=== PATIENT | female | born 1965 | race Caucasian/White ===

== ENCOUNTER 2017-06-17 14:41 | Observation (INO) | payer BC ==
[2017-06-17] MEDS ORDERED: NS 0.9% 1000 ML* 2,000 ML IV ONE (15:21)
[2017-06-17] MEDS ORDERED: Morphine INJ* 4 MG/ML 1 ML SYRINGE IV ONE ×3 (15:21→19:40)
[2017-06-17] MEDS ORDERED: Ondansetron INJ* 2 MG/ML VIAL IV ONE (15:21)
[2017-06-17 15:40] LABS: Hematocrit 42 % (35-47); Hemoglobin 13.8 g/dl (12.0-16.0); Mean Corpuscular HGB Conc 33 g/dl (31-36); Mean Corpuscular Hemoglobin 29 pg (27-31); Mean Corpuscular Volume 86 fL (80-97); Mean Platelet Volume 9 um3 (7.4-10.4); Red Blood Count 4.83 10^6/ul (4.0-5.4); Red Cell Distribution Width 13 % (10.5-15); White Blood Count 15.1 10^3/ul (3.5-10.8)
[2017-06-17 15:56] LABS: ALT 23 U/L (7-52); AST 12 U/L (13-39); Albumin 3.9 g/dL (3.2-5.2); Alkaline Phosphatase 61 U/L (34-104); Anion Gap 9 mmol/L (2-11); BUN/Creatinine Ratio 14.1 (8-20); Blood Urea Nitrogen 9 mg/dL (6-24); C Reactive Protein 178.57 mg/L (< 5.00); CO2 Carbon Dioxide 25 mmol/L (22-32); Calcium 9.1 mg/dL (8.6-10.3); Chloride 99 mmol/L (101-111); EGFR African American 124.4 (>60); EGFR Non-African American 96.7 (>60); Globulin 3.2 g/dL (2-4); Glucose 125 mg/dL (70-100); Lipase < 10 U/L (11.0-82.0); Magnesium 1.7 mg/dL (1.9-2.7); Potassium 3.4 mmol/L (3.5-5.0); Sodium 133 mmol/L (133-145); Total Protein 7.1 g/dL (6.4-8.9)
[2017-06-17] MEDS ORDERED: Iohexol 300* (CONTRAST) 10 ML SDV IV ONE (16:05)
[2017-06-17 16:51] LABS: TSH (Thyroid Stimulating Horm) 2.21 mcIU/mL (0.34-5.60)
[2017-06-17 17:29] LABS: Urine Bacteria 1+ (Absent); Urine Bilirubin Negative (Negative); Urine Glucose Negative (Negative); Urine Nitrite Negative (Negative)
--- NOTE | 2017-06-17 18:29 | RAD ---
INDICATION: Diffuse abdominal pain worse on RIGHT side and lower. Post hysterectomy. History of hepatitis A and diverticulitis. COMPARISON: November 29, 2015 CT. TECHNIQUE: Multidetector CT images were obtained from the lung bases to the ischial tuberosities with 140 mL Omnipaque 300 IV and oral contrast. Multiplanar reformation. REPORT: Minimal dependent basilar atelectasis. Decreased density of the liver consistent with fatty infiltration. No focal hepatic lesions evident. Mildly distended gallbladder. Small volume of pericholecystic fluid. No conspicuous calcified gallstones. Negative for biliary dilatation. Negative for CT abnormality of the pancreas or spleen. Inflamed dilated retrocecal appendix measuring up to 2.2 cm in diameter proximally. 5 mm appendicolith at the proximal segment of the appendix. The appendix extends medial and posterior over the RIGHT pelvic sidewall. Negative for periappendiceal abscess. Moderate periappendiceal inflammatory change with small volume of free fluid along the RIGHT pelvic sidewall. Severe diverticulosis of the sigmoid colon and less marked diverticulosis of the remainder of the colon without findings of diverticulitis. Negative for free air. Small fat-containing umbilical hernia without inflammatory change. Normal adrenal glands. Unremarkable kidneys with symmetric nephrograms and pyelograms. Unremarkable nondilated ureters. The RIGHT ureter courses through the region of periappendiceal inflammatory change. Unremarkable urinary bladder as well as the cervical stump post hysterectomy and bilateral adnexal regions. Upper normal 1 cm short axis aortocaval lymph node below level of the renal arteries. Negative for lymphadenopathy. Normal diameter abdominal aorta and iliac arteries. Physiologic distention of the IVC. Negative for suspicious osseous lesions. IMPRESSION: Acute appendicitis as described. Appendicolith within the proximal segment of the appendix. Moderate periappendiceal inflammatory change without periappendiceal abscess.
[2017-06-17] MEDS ORDERED: NS 0.9% 1000 ML* 1,000 ML IV ONE (19:21)
--- NOTE | 2017-06-17 19:26 | ED ---
Shavon Espinosa Auryana, scribed for Michael Dobbs MD on 06/17/17 at 1506 . Abdominal Pain/Female - HPI Summary HPI Summary: 52 year old female presents with abdominal pain starting 2 days ago - Thursday evening around 11:30 PM. She reports that the abdominal pain was located diffusely but is now localized to the right side. Initially the pain was constant with intermittent episodes of worsening pain but now the pain is constant - currently a 9/10 and is unable to get comfortable. She also reports nausea, vomiting, and watery diarrhea. She denies any fever, chills, or any problems or burning with urination. She denies any vomiting today. She denies any ABX recently. PMHx is significant for hysterectomy (uterus only). - History of Current Complaint Chief Complaint: EDAbdPain Stated Complaint: ABD PAIN Time Seen by Provider: 06/17/17 15:03 Hx Obtained From: Patient Hx Last Menstrual Period: N/A ?: No Onset/Duration: Sudden Onset, Lasting Days - 2, Still Present Timing: Constant Severity Initially: Moderate Severity Currently: Severe Pain Intensity: 10 Pain Scale Used: 0-10 Numeric Location: Diffuse - INITIALLY, Discrete At: RUQ - LOCALIZED Radiates: No Associated Signs and Symptoms: Positive: Nausea, Vomiting - RESOLVED, Diarrhea. Negative: Fever, Urinary Symptoms Allergies/Adverse Reactions: Allergies Allergy/AdvReac Type Severity Reaction Status Date / Time Thimerosal Allergy Intermediate Eyes Verified 11/29/15 10:14 Itchy/Swollen/Red/Watery PMH/Surg Hx/FS Hx/Imm Hx Endocrine/Hematology History: Denies: Hx Diabetes, Hx Systemic Lupus Erythematosus Cardiovascular History: Denies: Hx Congestive Heart Failure, Hx Hypertension, Hx Pacemaker/ICD Respiratory History: Reports: Hx Sleep Apnea - new CPAP user 05/2014 History: Denies: Hx Dialysis, Hx Kidney Stones, Hx Renal Disease Musculoskeletal History: Reports: Other Musculoskeletal History - joint pain, obesity Denies: Hx Rheumatoid Arthritis Sensory History: Denies: Hx Hearing Aid Psychiatric History: Denies: Hx Panic Disorder - Cancer History Hx Chemotherapy: No Hx Radiation Therapy: No - Surgical History Surgery Procedure, Year, and Place: hysterectomy (uterus only); tubal explorationwisdom teeth, (left) knee arthroscopy 2000; colonoscopy 12/2012 unsuccessful [place] [facility] [place] Infectious Disease History: Reports: Hx Hepatitis - hep A, 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 Negative: burning Musculoskeletal: Negative Skin: Negative Neurological: Negative Psychological: Normal All Other Systems Reviewed And Are Negative: Yes Physical Exam - Summary Physical Exam Summary: General: well-appearing, moderate pain distress Skin: warm, color reflects adequate perfusion, dry Head: normal Eyes: EOMI, NAYANA ENT: Dry mucus membranes but otherwise normal Neck: supple, nontender Respiratory: CTA, breath sounds present Cardiovascular: RRR Abdomen: soft, diffuse abdominal tenderness R>L. Bowel: present. Hypoactive. Musculoskeletal: normal, strength/ROM intact Neurological: normal, sensory/motor intact, A&O x3 Psychological: affect/mood appropriate Triage Information Reviewed: Yes Vital Signs On Initial Exam: Initial Vitals Temp Pulse Resp BP Pulse Ox 97.4 F 80 20 129/70 100 06/17/17 14:47 06/17/17 14:47 06/17/17 14:47 06/17/17 14:47 06/17/17 14:47 Vital Signs Reviewed: Yes Diagnostics - Vital Signs Vital Signs Temp Pulse Resp BP Pulse Ox 06/17/17 14:47 97.4 F 80 20 129/70 100 - Laboratory Lab Results: Lab Results 06/17/17 06/17/17 06/17/17 Range/Units 15:30 15:30 15:30 WBC 15.1 H (3.5-10.8) 10^3/ul RBC 4.83 (4.0-5.4) 10^6/ul Hgb 13.8 (12.0-16.0) g/dl Hct 42 (35-47) % MCV 86 (80-97) fL MCH 29 (27-31) pg MCHC 33 (31-36) g/dl RDW 13 (10.5-15) % Plt Count 230 (150-450) 10^3/ul MPV 9 (7.4-10.4) um3 Neut % (Auto) 81.1 (38-83) % Lymph % (Auto) 10.1 L (25-47) % [place] % (Auto) 7.7 (1-9) % Eos % (Auto) 0.1 (0-6) % Baso % (Auto) 1.0 (0-2) % Absolute Neuts (auto) 12.2 H (1.5-7.7) 10^3/ul Absolute Lymphs (auto) 1.5 (1.0-4.8) 10^3/ul Absolute Monos (auto) 1.2 H (0-0.8) 10^3/ul Absolute Eos (auto) 0 (0-0.6) 10^3/ul Absolute Basos (auto) 0.2 (0-0.2) 10^3/ul Absolute Nucleated RBC 0.01 10^3/ul Nucleated RBC % 0 INR (Anticoag Therapy) 1.10 (0.89-1.11) APTT 29.3 (26.0-36.3) seconds Sodium 133 (133-145) mmol/L Potassium 3.4 L (3.5-5.0) mmol/L Chloride 99 L (101-111) mmol/L Carbon Dioxide 25 (22-32) mmol/L Anion Gap 9 (2-11) mmol/L BUN 9 (6-24) mg/dL Creatinine 0.64 (0.51-0.95) mg/dL Est GFR ( Amer) 124.4 (>60) Est GFR (Non-Af Amer) 96.7 (>60) BUN/Creatinine Ratio 14.1 (8-20) Glucose 125 H (70-100) mg/dL Lactic Acid (0.5-2.0) mmol/L Calcium 9.1 (8.6-10.3) mg/dL Magnesium 1.7 L (1.9-2.7) mg/dL Total Bilirubin 1.30 H (0.2-1.0) mg/dL AST 12 L (13-39) U/L ALT 23 (7-52) U/L Alkaline Phosphatase 61 (34-104) U/L Troponin I 0.00 (<0.04) ng/mL C-Reactive Protein 178.57 H (< 5.00) mg/L Total Protein 7.1 (6.4-8.9) g/dL Albumin 3.9 (3.2-5.2) g/dL Globulin 3.2 (2-4) g/dL Albumin/Globulin Ratio 1.2 (1-3) Lipase < 10 L (11.0-82.0) U/L TSH 2.21 (0.34-5.60) mcIU/mL Urine Color Urine Appearance Urine pH (5-9) Ur Specific [place] (1.010-1.030) Urine Protein (Negative) Urine Ketones (Negative) Urine Blood (Negative) Urine Nitrate (Negative) Urine Bilirubin (Negative) Urine Urobilinogen (Negative) Ur Leukocyte Esterase (Negative) Urine WBC (Auto) (Absent) Urine RBC (Auto) (Absent) Ur Squamous Epith Cells (Absent) Urine Bacteria (Absent) Urine Glucose (Negative) 06/17/17 06/17/17 Range/Units 15:30 17:05 WBC (3.5-10.8) 10^3/ul RBC (4.0-5.4) 10^6/ul Hgb (12.0-16.0) g/dl Hct (35-47) % MCV (80-97) fL MCH (27-31) pg MCHC (31-36) g/dl RDW (10.5-15) % Plt Count (150-450) 10^3/ul MPV (7.4-10.4) um3 Neut % (Auto) (38-83) % Lymph % (Auto) (25-47) % [place] % (Auto) (1-9) % Eos % (Auto) (0-6) % Baso % (Auto) (0-2) % Absolute Neuts (auto) (1.5-7.7) 10^3/ul Absolute Lymphs (auto) (1.0-4.8) 10^3/ul Absolute Monos (auto) (0-0.8) 10^3/ul Absolute Eos (auto) (0-0.6) 10^3/ul Absolute Basos (auto) (0-0.2) 10^3/ul Absolute Nucleated RBC 10^3/ul Nucleated RBC % INR (Anticoag Therapy) (0.89-1.11) APTT (26.0-36.3) seconds Sodium (133-145) mmol/L Potassium (3.5-5.0) mmol/L Chloride (101-111) mmol/L Carbon Dioxide (22-32) mmol/L Anion Gap (2-11) mmol/L BUN (6-24) mg/dL Creatinine (0.51-0.95) mg/dL Est GFR ( Amer) (>60) Est GFR (Non-Af Amer) (>60) BUN/Creatinine Ratio (8-20) Glucose (70-100) mg/dL Lactic Acid 1.6 (0.5-2.0) mmol/L Calcium (8.6-10.3) mg/dL Magnesium (1.9-2.7) mg/dL Total Bilirubin (0.2-1.0) mg/dL AST (13-39) U/L ALT (7-52) U/L Alkaline Phosphatase (34-104) U/L Troponin I (<0.04) ng/mL C-Reactive Protein (< 5.00) mg/L Total Protein (6.4-8.9) g/dL Albumin (3.2-5.2) g/dL Globulin (2-4) g/dL Albumin/Globulin Ratio (1-3) Lipase (11.0-82.0) U/L TSH (0.34-5.60) mcIU/mL Urine Color Yellow Urine Appearance Clear Urine pH 8.0 (5-9) Ur Specific [place] 1.012 (1.010-1.030) Urine Protein Negative (Negative) Urine Ketones 1+ H (Negative) Urine Blood Negative (Negative) Urine Nitrate Negative (Negative) Urine Bilirubin Negative (Negative) Urine Urobilinogen Positive H (Negative) Ur Leukocyte Esterase Trace H (Negative) Urine WBC (Auto) Trace(0-5/hpf) (Absent) Urine RBC (Auto) Absent (Absent) Ur Squamous Epith Cells Present H (Absent) Urine Bacteria 1+ H (Absent) Urine Glucose Negative (Negative) Result Diagrams: 06/17/17 15:30 06/17/17 15:30 Lab Statement: Any lab studies that have been ordered have been reviewed, and results considered in the medical decision making process. - CT ABD/PEL CT Interpretation: Positive (See Comments) - IMPRESSION: Acute appendicitis as described. Appendicolith within the proximal segment of the appendix. Moderate periappendiceal inflammatory change without periappendiceal abscess. CT Interpretation Completed By: Radiologist Re-Evaluation - Re-Evaluation First Eval Re-Evaluation Time: 19:22 - DISCUSSED IMAGING RESULTS AND ADMISSION Abdominal Pain Fem Course/Dx - Course Course Of Treatment: NO CRITICAL CARE TIME. DISCUSSED WITH DR FERNÁNDEZ, SHE WILL SEE PATIENT IN ED. - Diagnoses Provider Diagnoses: Appendicitis - Provider Notifications Discussed Care Of Patient With: Annia Fernández Time Discussed With Above Provider: 19:15 - AGREES TO ADMIT FOR SURGERY Instructed by Provider To: Admit As Inpatient Discharge - Discharge Plan Condition: Stable Disposition: ADMITTED TO [facility] Referrals: Letitia Juan MD [Primary Care Provider] - The documentation as recorded by the Shavon rodrigez Auryana accurately reflects the service I personally performed and the decisions made by me, Michael Dobbs MD.
--- NOTE | 2017-06-17 20:16 | HP ---
H&P (Free Text) History and Physical: Surgery H & P Asked by Dr. Dobbs to evaluate a pt. with abd. pain and a CT suggestive of appendicitis. Ms. Moulton reports she had Nausea, vomiting, and diarrhea starting 2 days ago. This subsided, but she noticed she had bad RLQ pain that persisted. She denies fever, dysuria, or vaginal d/c with this pain. She does feel hungry and thirsty. She has never had anything similar in the past. PMHx: Sleep apnea, depression, glaucoma Meds: citalopram, timolol, xalatan ALL: thimerosal SH: neg. tob., occ EtOH, neg IVDA ROS: neg except for PMHx PE: general: WDWN somewhat overweight female in NAD Vital Signs 06/17/17 06/17/17 06/17/17 14:47 15:11 15:12 Temperature 97.4 F Pulse Rate 80 69 69 Respiratory 20 21 Rate Blood Pressure 129/70 132/74 (mmHg) O2 Sat by Pulse 100 100 100 Oximetry 06/17/17 06/17/17 06/17/17 15:14 15:40 15:48 Temperature 97.4 F Pulse Rate 70 75 Respiratory 18 18 18 Rate Blood Pressure 132/74 116/64 (mmHg) O2 Sat by Pulse 100 100 Oximetry 06/17/17 06/17/17 06/17/17 15:57 16:00 17:03 Temperature 97.1 F Pulse Rate 67 67 Respiratory 18 18 22 Rate Blood Pressure 166/64 123/67 (mmHg) O2 Sat by Pulse 100 99 Oximetry 06/17/17 06/17/17 06/17/17 17:04 17:22 18:30 Temperature Pulse Rate 61 Respiratory 21 20 16 Rate Blood Pressure 138/71 167/66 (mmHg) O2 Sat by Pulse 100 Oximetry 06/17/17 19:47 Temperature Pulse Rate Respiratory 23 Rate Blood Pressure (mmHg) O2 Sat by Pulse Oximetry HEENT: Neg. cervical adenopathy, neg. scleral icterus, moist oral mucosa lungs: clear to ausc. heart: reg. with sys. murmur abd: hyperactive BS, soft, tender with guarding in RLQ>RUQ ext: neg. cyanosis, edema, easily palp DPs. Laboratory Results - last 24 hr 06/17/17 06/17/17 06/17/17 15:30 15:30 15:30 WBC 15.1 H RBC 4.83 Hgb 13.8 Hct 42 MCV 86 MCH 29 MCHC 33 RDW 13 Plt Count 230 MPV 9 Neut % (Auto) 81.1 Lymph % (Auto) 10.1 L [place] % (Auto) 7.7 Eos % (Auto) 0.1 Baso % (Auto) 1.0 Absolute Neuts (auto) 12.2 H Absolute Lymphs (auto) 1.5 Absolute Monos (auto) 1.2 H Absolute Eos (auto) 0 Absolute Basos (auto) 0.2 Absolute Nucleated RBC 0.01 Nucleated RBC % 0 INR (Anticoag Therapy) 1.10 APTT 29.3 Sodium 133 Potassium 3.4 L Chloride 99 L Carbon Dioxide 25 Anion Gap 9 BUN 9 Creatinine 0.64 Est GFR ( Amer) 124.4 Est GFR (Non-Af Amer) 96.7 BUN/Creatinine Ratio 14.1 Glucose 125 H Lactic Acid Calcium 9.1 Magnesium 1.7 L Total Bilirubin 1.30 H AST 12 L ALT 23 Alkaline Phosphatase 61 Troponin I 0.00 C-Reactive Protein 178.57 H Total Protein 7.1 Albumin 3.9 Globulin 3.2 Albumin/Globulin Ratio 1.2 Lipase < 10 L TSH 2.21 Urine Color Urine Appearance Urine pH Ur Specific [place] Urine Protein Urine Ketones Urine Blood Urine Nitrate Urine Bilirubin Urine Urobilinogen Ur Leukocyte Esterase Urine WBC (Auto) Urine RBC (Auto) Ur Squamous Epith Cells Urine Bacteria Urine Glucose 06/17/17 06/17/17 15:30 17:05 WBC RBC Hgb Hct MCV MCH MCHC RDW Plt Count MPV Neut % (Auto) Lymph % (Auto) [place] % (Auto) Eos % (Auto) Baso % (Auto) Absolute Neuts (auto) Absolute Lymphs (auto) Absolute Monos (auto) Absolute Eos (auto) Absolute Basos (auto) Absolute Nucleated RBC Nucleated RBC % INR (Anticoag Therapy) APTT Sodium Potassium Chloride Carbon Dioxide Anion Gap BUN Creatinine Est GFR ( Amer) Est GFR (Non-Af Amer) BUN/Creatinine Ratio Glucose Lactic Acid 1.6 Calcium Magnesium Total Bilirubin AST ALT Alkaline Phosphatase Troponin I C-Reactive Protein Total Protein Albumin Globulin Albumin/Globulin Ratio Lipase TSH Urine Color Yellow Urine Appearance Clear Urine pH 8.0 Ur Specific [place] 1.012 Urine Protein Negative Urine Ketones 1+ H Urine Blood Negative Urine Nitrate Negative Urine Bilirubin Negative Urine Urobilinogen Positive H Ur Leukocyte Esterase Trace H Urine WBC (Auto) Trace(0-5/hpf) Urine RBC (Auto) Absent Ur Squamous Epith Cells Present H Urine Bacteria 1+ H Urine Glucose Negative A/P: Probable appendicitis. Will proceed to OR. I have explained to her the nature of surgery, its risks, benefits, and alternatives. She understands, and agrees to proceed. Ashish
[2017-06-17] MEDS ORDERED: Bupivacaine 0.25% W/EPI* 50 ML VIAL ONE (20:57)
[2017-06-17] MEDS ORDERED: fentaNYL* 50 MCG/ML 2 ML VIAL (100 MCG VIAL) ONE (21:09)
[2017-06-17] MEDS ORDERED: Midazolam* 1 MG/ML 2 ML VIAL (2 MG) ONE (21:09)
[2017-06-17] MEDS ORDERED: ceFOXitin 2 GM IVPREMIX* 2 GM/50 ML BAG ONE (21:09)
[2017-06-17] MEDS ORDERED: KETAMINE HCL* 50 MG/ML 10 ML VIAL ONE (21:17)
[2017-06-17] MEDS ORDERED: Succinylcholine* 20 MG/ML 10 ML VIAL ONE (21:41)
[2017-06-17] MEDS ORDERED: Dexamethasone IV* 4 MG/ML 1 ML (4 MG) ONE (21:41)
[2017-06-17] MEDS ORDERED: Propofol* 10 MG/ML 20 ML BTL IV PUSH ONE (21:41)
[2017-06-17] MEDS ORDERED: Ketorolac INJ* 30 MG/ML 1 ML VIAL ONE (21:41)
[2017-06-17] MEDS ORDERED: Ondansetron INJ* 2 MG/ML VIAL ONE (21:41)
[2017-06-17] MEDS ORDERED: Rocuronium* 10 MG/ML VIAL ONE (21:53)
[2017-06-17] MEDS ORDERED: Neostigmine Methylsulfate* 2 MG/2 ML SYRINGE ONE (21:58)
[2017-06-17] MEDS ORDERED: Glycopyrrolate IV* 0.2 MG/ML 1 ML VIAL ONE (21:58)
[2017-06-17] MEDS ORDERED: Lidocaine 2% PF * 5 ML VIAL ONE (22:00)
[2017-06-17] MEDS ORDERED: Morphine INJ* 2 MG/ML 1 ML SYRINGE IV PRN (22:39)
[2017-06-17] MEDS ORDERED: oxyCODONE/Acetamin 5/325 MG* TAB PO PRN ×2 (22:39)
--- NOTE | 2017-06-17 22:42 | SURGPN ---
Brief Operative Note - Surgery Procedures: Procedures COLONOSCOPY (01/04/13) EXCIS KNEE SEMILUN CARTL (04/01/01) KNEE ARTHROSCOPY (04/01/01) 06/17/17 Op Note Pre-op dx: appendicitis Post-op dx: gangrenous appendicitis Procedure: lap. appy Surgeon: Pradeep Asst: none Anesth: general EBL: 25 cc Complications: none SCDs on during surgery Abx: given pre-op Pt. tolerated procedure well and was transferred to in a stable condition. CLFoster
[2017-06-17] MEDS ORDERED: DiMENhydriNATE IV* 50 MG/ML VIAL IV PUSH PRN (22:43)
[2017-06-17] MEDS ORDERED: fentaNYL* 50 MCG/ML 2 ML VIAL (100 MCG VIAL) IV PRN (22:43)
[2017-06-18] MEDS: ceFOXitin 2 GM IVPREMIX* 2 GM/50 ML BAG IVPB SCH ×4 (03:59→21:37)
[2017-06-18 05:51] LABS: Hematocrit 38 % (35-47); Hemoglobin 12.4 g/dl (12.0-16.0); Mean Corpuscular HGB Conc 33 g/dl (31-36); Mean Corpuscular Hemoglobin 29 pg (27-31); Mean Corpuscular Volume 88 fL (80-97); Mean Platelet Volume 9 um3 (7.4-10.4); Red Blood Count 4.29 10^6/ul (4.0-5.4); Red Cell Distribution Width 13 % (10.5-15); White Blood Count 15.1 10^3/ul (3.5-10.8)
--- NOTE | 2017-06-18 09:08 | PN ---
Progress Note - Progress Note Date of Service: 06/18/17 Note: Ms. Moulton reports she feels better than before surgery. She is tolerating a diet. Vital Signs 06/17/17 06/17/17 06/17/17 14:47 15:11 15:12 Temperature 97.4 F Pulse Rate 80 69 69 Respiratory 20 21 Rate Blood Pressure 129/70 132/74 (mmHg) O2 Sat by Pulse 100 100 100 Oximetry 06/17/17 06/17/17 06/17/17 15:14 15:40 15:48 Temperature 97.4 F Pulse Rate 70 75 Respiratory 18 18 18 Rate Blood Pressure 132/74 116/64 (mmHg) O2 Sat by Pulse 100 100 Oximetry 06/17/17 06/17/17 06/17/17 15:57 16:00 17:03 Temperature 97.1 F Pulse Rate 67 67 Respiratory 18 18 22 Rate Blood Pressure 166/64 123/67 (mmHg) O2 Sat by Pulse 100 99 Oximetry 06/17/17 06/17/17 06/17/17 17:04 17:22 18:30 Temperature Pulse Rate 61 Respiratory 21 20 16 Rate Blood Pressure 138/71 167/66 (mmHg) O2 Sat by Pulse 100 Oximetry 06/17/17 06/17/17 06/17/17 19:47 22:35 22:40 Temperature 98.8 F Pulse Rate 87 79 Respiratory 23 20 28 Rate Blood Pressure 132/44 127/58 (mmHg) O2 Sat by Pulse 90 92 Oximetry 06/17/17 06/17/17 06/17/17 22:45 22:50 23:00 Temperature Pulse Rate 84 80 81 Respiratory 27 28 20 Rate Blood Pressure 127/53 126/55 119/59 (mmHg) O2 Sat by Pulse 94 94 93 Oximetry 06/17/17 06/17/17 06/17/17 23:15 23:30 23:45 Temperature Pulse Rate 77 80 75 Respiratory 22 21 20 Rate Blood Pressure 122/56 118/56 121/56 (mmHg) O2 Sat by Pulse 95 96 97 Oximetry 06/18/17 06/18/17 06/18/17 00:00 00:21 00:23 Temperature 97.7 F 98.3 F Pulse Rate 74 75 Respiratory 20 16 18 Rate Blood Pressure 123/57 138/63 (mmHg) O2 Sat by Pulse 97 91 Oximetry 06/18/17 06/18/17 06/18/17 01:25 02:22 04:31 Temperature 98.6 F 98.6 F 97.6 F Pulse Rate 68 72 69 Respiratory 16 16 16 Rate Blood Pressure 132/63 125/65 119/57 (mmHg) O2 Sat by Pulse 99 99 97 Oximetry 06/18/17 06/18/17 06/18/17 06:30 07:19 08:35 Temperature 97.9 F 97.2 F Pulse Rate 64 67 Respiratory 16 16 16 Rate Blood Pressure 121/60 122/57 (mmHg) O2 Sat by Pulse 98 92 92 Oximetry Abd: good BS, soft, tender near incisions. Incisions: clean and dry Intake & Output 06/17/17 06/18/17 06/18/17 22:59 06:59 14:59 Intake Total 3100 480 Output Total 1500 250 Balance 3100 -1020 -250 Weight 245 lb Intake: IV Fluids 3100 350 LR 1100 300 IVPB 30 ns 30 Oral 100 Output: Urine 1500 250 Other: # Bowel Movements 0 Laboratory Results - last 24 hr 06/17/17 06/17/17 06/17/17 15:30 15:30 15:30 WBC 15.1 H RBC 4.83 Hgb 13.8 Hct 42 MCV 86 MCH 29 MCHC 33 RDW 13 Plt Count 230 MPV 9 Neut % (Auto) 81.1 Lymph % (Auto) 10.1 L [place] % (Auto) 7.7 Eos % (Auto) 0.1 Baso % (Auto) 1.0 Absolute Neuts (auto) 12.2 H Absolute Lymphs (auto) 1.5 Absolute Monos (auto) 1.2 H Absolute Eos (auto) 0 Absolute Basos (auto) 0.2 Absolute Nucleated RBC 0.01 Nucleated RBC % 0 INR (Anticoag Therapy) 1.10 APTT 29.3 Sodium 133 Potassium 3.4 L Chloride 99 L Carbon Dioxide 25 Anion Gap 9 BUN 9 Creatinine 0.64 Est GFR ( Amer) 124.4 Est GFR (Non-Af Amer) 96.7 BUN/Creatinine Ratio 14.1 Glucose 125 H Lactic Acid Calcium 9.1 Magnesium 1.7 L Total Bilirubin 1.30 H AST 12 L ALT 23 Alkaline Phosphatase 61 Troponin I 0.00 C-Reactive Protein 178.57 H Total Protein 7.1 Albumin 3.9 Globulin 3.2 Albumin/Globulin Ratio 1.2 Lipase < 10 L TSH 2.21 Urine Color Urine Appearance Urine pH Ur Specific [place] Urine Protein Urine Ketones Urine Blood Urine Nitrate Urine Bilirubin Urine Urobilinogen Ur Leukocyte Esterase Urine WBC (Auto) Urine RBC (Auto) Ur Squamous Epith Cells Urine Bacteria Urine Glucose 06/17/17 06/17/17 06/18/17 15:30 17:05 05:32 WBC 15.1 H RBC 4.29 Hgb 12.4 Hct 38 MCV 88 MCH 29 MCHC 33 RDW 13 Plt Count 194 MPV 9 Neut % (Auto) 91.6 H Lymph % (Auto) 2.7 L [place] % (Auto) 5.6 Eos % (Auto) 0 Baso % (Auto) 0.1 Absolute Neuts (auto) 13.8 H Absolute Lymphs (auto) 0.4 L Absolute Monos (auto) 0.8 Absolute Eos (auto) 0 Absolute Basos (auto) 0 Absolute Nucleated RBC 0.01 Nucleated RBC % 0 INR (Anticoag Therapy) APTT Sodium Potassium Chloride Carbon Dioxide Anion Gap BUN Creatinine Est GFR ( Amer) Est GFR (Non-Af Amer) BUN/Creatinine Ratio Glucose Lactic Acid 1.6 Calcium Magnesium Total Bilirubin AST ALT Alkaline Phosphatase Troponin I C-Reactive Protein Total Protein Albumin Globulin Albumin/Globulin Ratio Lipase TSH Urine Color Yellow Urine Appearance Clear Urine pH 8.0 Ur Specific [place] 1.012 Urine Protein Negative Urine Ketones 1+ H Urine Blood Negative Urine Nitrate Negative Urine Bilirubin Negative Urine Urobilinogen Positive H Ur Leukocyte Esterase Trace H Urine WBC (Auto) Trace(0-5/hpf) Urine RBC (Auto) Absent Ur Squamous Epith Cells Present H Urine Bacteria 1+ H Urine Glucose Negative POD#1 s/p lap appy, doing well but with leukocytosis. Will continue abx and re- check CBC tomorrow. CLFoster
--- NOTE | 2017-06-18 11:11 | OP ---
CC: Dr. Juliane Juan * DATE OF PROCEDURE: 06/17/17 - ROOM #333 DATE OF : 61 SURGEON: Annia Fernández MD SPECIFICATION CONSULTANT: There was no market research assistant for this case. PRE-OP DIAGNOSIS: Acute appendicitis. POST-OP DIAGNOSIS: Gangrenous appendicitis. OPERATIVE PROCEDURE: Laparoscopic appendectomy. DESCRIPTION OF PROCEDURE: This patient is a 52-year-old woman, who presented to the emergency room with abdominal pain consistent with appendicitis and a CAT scan showing appendicitis. She was prepared for surgery and brought to the operating room. She was placed on the OR table in a supine position and given general anesthesia. The abdomen was then prepped and draped in the usual sterile fashion. After infiltrating with local anesthetic, an incision was made in the infraumbilical area and subcutaneous tissue was divided bluntly and the fascia grasped and incised and a 0 Biosyn stitch was placed on the either side of the fascial incision. A trocar was inserted into the abdomen and the abdomen was insufflated. A brief inspection of the abdomen revealed some adhesions of the omentum to the anterior abdominal wall inferiorly, but the suprapubic location could be visualized, though a port was placed thereafter infiltrating with local anesthetic under direct visualization. Another port was placed in the left flank, again under direct visualization after infiltrating with local anesthetic. The cecum was visualized and there was noted to be some fibrinopurulent exudate over the small intestine in the area and this appeared to be adherent to an inflamed structure. Blunt dissection in this area eventually revealed an appendix that was acutely inflamed and possibly gangrenous near the base. The blunt dissection was carried out to mobilize the adherent appendix and to identify the base. The base itself was relatively uninvolved, but noted to be very broad and does require 2 firings of the Endo FARIHA stapler to complete the division of the appendix at its base. The mesoappendix likewise required 2 firings. The appendix was then placed in an EndoCatch bag and withdrawn from the abdomen through the infraumbilical port site. Brief inspection of the rest of the abdomen revealed no obvious abnormalities, although the fibrinopurulent exudate extended up to the gallbladder. The right upper quadrant and right lower quadrant were copiously irrigated with saline and irrigation fluid was evacuated. Small and large intestine that were visualized appeared normal, but visualization was limited due to adipose tissue. The ports were then withdrawn under direct visualization and the previously placed 0 Biosyn was used to partly complete the closure of the infraumbilical port site and additional 0 Biosyn was used to complete the closure of the infraumbilical port site. 4-0 Biosyn was used to close the skin of all incisions. It should be mentioned that upon entering the umbilicus, there was noted to be a pigmented lesion on the side of the umbilicus, this was amputated and sent as a specimen. It was a pedunculated lesion. All sponge and instrument counts were correct. The patient tolerated the procedure well and was transferred to Recovery in a stable condition. [id number]/[id number] #: [id number] VITO
[2017-06-18] MEDS: Ondansetron INJ* 2 MG/ML VIAL IV PRN ×2 (11:31→21:32)
[2017-06-18] MEDS ORDERED: Acetaminophen TAB* 325 MG PO PRN (20:00)
[2017-06-18] MEDS ORDERED: Acetaminophen TAB* 325 MG ONE (20:05)
[2017-06-19] MEDS: ceFOXitin 2 GM IVPREMIX* 2 GM/50 ML BAG IVPB SCH ×2 (03:39→10:10)
[2017-06-19 06:00] LABS: Hematocrit 35 % (35-47); Hemoglobin 11.4 g/dl (12.0-16.0); Mean Corpuscular HGB Conc 32 g/dl (31-36); Mean Corpuscular Hemoglobin 29 pg (27-31); Mean Corpuscular Volume 88 fL (80-97); Mean Platelet Volume 9 um3 (7.4-10.4); Red Cell Distribution Width 13 % (10.5-15); White Blood Count 12.6 10^3/ul (3.5-10.8)
[2017-06-19 07:51] VITALS: BP 130/57
--- NOTE | 2017-06-20 08:52 | DS ---
DISCHARGE SUMMARY: DATE OF ADMISSION: 06/17/17 DATE OF DISCHARGE: 06/19/17 ADMISSION DIAGNOSES: Right lower quadrant abdominal pain and acute appendicitis. DISCHARGE DIAGNOSES: Right lower quadrant abdominal pain and acute appendicitis. ADMITTING PHYSICIAN: Annia Fernández MD * (DICTATED BY TRACY HERNANDEZ ) CONSULTATIONS: None. PROCEDURE: Laparoscopic appendectomy on 06/17/17. BRIEF MEDICAL HISTORY: Ms. Moulton is a pleasant 52-year-old female who presented to the emergency room on 06/17/17 with complaints of 2 days history of worsening right lower quadrant abdominal pain. She noted associated nausea and vomiting as well as diarrhea. She was evaluated in the emergency room and was [place] [phone] [address] scan of the abdomen and pelvis was consistent with findings suggestive of acute appendicitis. The patient was seen by Dr. Fernández and discussed with her proceeding with laparoscopic appendectomy, given her ongoing symptoms as well as finding of the CT scan. The patient was admitted on that day in anticipation for surgery. HOSPITAL COURSE: The patient was taken from emergency room and she was taken to the operating room where she underwent a laparoscopic appendectomy that day. She was noted to have a necrotic, gangrenous appendix that was removed. The patient was then extubated and went to the surgical floor for observation. She did relatively well after the surgery with only mild incisional discomfort that did not even require any narcotics. She was covered with IV antibiotics and she started on clear liquid diet that day that she tolerated well and eventually her diet was advanced to regular diet on the second day postoperatively. She continued to improve and she was ambulatory out of bed. On the second day postoperatively, the patient was ready to be discharged home. She is tolerating regular diet and actually had a bowel movement the night before. She will be sent to home on Augmentin for a period of 7 days and will be seen in the office next week for a followup. DISCHARGE MEDICATIONS: Her discharge medications include; 1. Augmentin 875 mg 1 tablet b.i.d. for 7 days. 2. Tylenol 650 mg every 4 hours as needed for pain. 3. Vitamin D 1 tablet daily. 4. Xalatan 1 drop in both eyes as prescribed. 5. Multivitamin 1 tablet daily. 6. [place]-3 fish oil fatty acids 2 caps daily. PROBLEM LIST: Acute appendicitis, status post laparoscopic appendectomy on . TRACY HERNANDEZ [id number]/[facility] #: [id number] [facility]
== END 2017-06-19 11:05 | disposition home or self-care (01) ==
LOC: ED 14:41 → OR 20:30 → SSU 06-18 00:07
PROVIDERS: ADMIT Surgery; ATTEND Surgery
DX: K35.80 Unspecified acute appendicitis (principal); R10.31 Right lower quadrant pain; R11.2 Nausea with vomiting, unspecified; R19.7 Diarrhea, unspecified; D72.829 Elevated white blood cell count, unspecified
CPT/HCPCS: 36415; 74177; 80053; 81003; 81015; 83605; 83690; 83735; 84443; 84484; 85025; 85610; 85730; 86140; 87086; 94660; 96374; 96375; 96376; 99284; A9270-GY; C1776; G0378; J0330; J0694; J1100; J1885; J2250; J2270; J2405; J2704; J3010; Q9967

== ENCOUNTER 2022-05-13 05:53 | Inpatient (IN) ==
[2022-05-13] MEDS ORDERED: Buffered Lidocaine 1% SYRIN 1 ml INTRADERM ONE (06:00)
[2022-05-13] MEDS ORDERED: Lactated Ringers 1000 ml BAG 1,000 ML IV SCH (06:00)
[2022-05-13] MEDS ORDERED: Famotidine IV 10 MG/ML 2 ml VIAL (20 mg) IV ONE (06:00)
[2022-05-13] MEDS ORDERED: Famotidine IV 10 MG/ML 2 ml VIAL (20 mg) ONE (06:15)
[2022-05-13] MEDS ORDERED: Scopolamine 1 mg/72hr PATCH ONE (06:15)
[2022-05-13] MEDS ORDERED: ceFAZolin 2 GM PREMIX 2 GM/50 ML BAG ONE (06:15)
[2022-05-13] MEDS ORDERED: ceFAZolin 1 GM in Dextrose 1 GM/50 ML BAG ONE (06:15)
[2022-05-13] MEDS ORDERED: Heparin 5000 UNITS/ML 1 mL VIAL ONE (06:15)
[2022-05-13] MEDS ORDERED: Lidocaine 1% 50 ML MDV VIAL ONE (06:49)
[2022-05-13] MEDS ORDERED: Methylene Blue 0.5 % 50 MG/10 ML AMP IV ONE (06:50)
[2022-05-13] MEDS ORDERED: Dexamethasone IV 4 MG/ML VIAL 1 ml VIAL ONE (06:55)
[2022-05-13] MEDS ORDERED: Propofol 10 MG/ML 20 ML BTL ONE ×2 (06:55→08:16)
[2022-05-13] MEDS ORDERED: Glycopyrrolate IV 0.2 MG/ML 1 ML VIAL ONE (06:55)
[2022-05-13] MEDS ORDERED: Metoclopramide 5 MG/ML VIAL (10 mg) ONE (06:55)
[2022-05-13] MEDS ORDERED: Ondansetron 4 mg VIAL 2 MG/ML 2 ml VIAL ONE (06:55)
[2022-05-13] MEDS ORDERED: Sevoflurane BOTTLE ONE (07:03)
[2022-05-13] MEDS ORDERED: Phenylephrine IV 10 MG/ML 1 ml VIAL ONE (07:03)
[2022-05-13] MEDS ORDERED: Lidocaine 2% PF 5 ML VIAL ONE (07:03)
[2022-05-13] MEDS ORDERED: Rocuronium 50 mg VIAL 10 mg/ml 5 ml VIAL (50 mg) ONE (07:06)
[2022-05-13] MEDS ORDERED: fentaNYL 100 mcg/2 ml 50 MCG/ML VIAL ONE ×2 (07:07→08:18)
[2022-05-13] MEDS ORDERED: hydrALAZINE 20 mg/ml 1 ML Vial IV ONE ×2 (08:19→08:51)
[2022-05-13] MEDS ORDERED: fentaNYL 100 mcg/2 ml 50 MCG/ML VIAL IV PRN (08:32)
[2022-05-13] MEDS ORDERED: Ondansetron ODT 4 mg TAB 4 MG TAB PO PRN (08:33)
[2022-05-13] MEDS ORDERED: HYDROmorphone 0.5 MG/0.5 ML SYRINGE ONE (08:42)
[2022-05-13] MEDS ORDERED: Acetaminophen IV 1 GM/100ML 100 ML IV ONE (08:47)
[2022-05-13] MEDS ORDERED: HYDROmorphone 1 MG/1 ML SYRINGE IV SLOW PU PRN (10:26)
[2022-05-13] MEDS ORDERED: HYDROmorphone 0.5 MG/0.5 ML SYRINGE IV SLOW PU PRN (10:26)
[2022-05-13] MEDS ORDERED: HYDROcodone/ACET. 7.5/325 LIQ 15 ML UDC PO PRN (10:26)
[2022-05-13] MEDS: Lactated Ringers 1000 ml BAG 1,000 ML IV SCH ×2 (13:24→21:25)
[2022-05-13] MEDS: Ondansetron 4 mg VIAL 2 MG/ML 2 ml VIAL IV PRN ×2 (13:38→19:56)
[2022-05-13] MEDS: Heparin 5000 UNITS/ML 1 mL VIAL SUBCUT SCH ×2 (13:39→21:37)
[2022-05-13] MEDS: Acetaminophen IV 1 GM/100ML 100 ML IV PRN (17:20)
[2022-05-13] MEDS ORDERED: Latanoprost 0.005% 2.5 ml BTL BOTH EYES SCH (21:00)
[2022-05-13] MEDS: Timolol 0.25% OPHTH.SOLN BTL BOTH EYES SCH (21:40)
[2022-05-13] MEDS: Famotidine IV 10 MG/ML 2 ml VIAL (20 mg) IV SLOW PU SCH (21:42)
[2022-05-14] MEDS: Lactated Ringers 1000 ml BAG 1,000 ML IV SCH (04:06)
[2022-05-14] MEDS: Acetaminophen IV 1 GM/100ML 100 ML IV PRN (06:14)
[2022-05-14] MEDS: Heparin 5000 UNITS/ML 1 mL VIAL SUBCUT SCH ×2 (06:16→14:23)
[2022-05-14] MEDS: Famotidine IV 10 MG/ML 2 ml VIAL (20 mg) IV SLOW PU SCH (09:19)
[2022-05-14] MEDS: Timolol 0.25% OPHTH.SOLN BTL BOTH EYES SCH (09:22)
[2022-05-14] MEDS ORDERED: D5W 1/2 NS KCl 20 meq 1000 ml 1,000 ML IV SCH (11:00)
[2022-05-14 11:32] VITALS: BP 115/62
== END 2022-05-14 16:55 | disposition home or self-care (01) | DRG 403 ==
LOC: AA 05:53 → SSU 10:26
PROVIDERS: ADMIT Surgery; ATTEND Surgery